=== PATIENT | female | born 1980 | race Caucasian/White ===

== ENCOUNTER 2019-04-06 21:07 | Emergency (ER) | payer OTHER ==
[~2019-04-06] VITALS: Ht 165.1 cm; Wt 76.0 kg
[2019-04-06 23:24] VITALS: BP 102/71
== END 2019-04-06 23:27 | disposition home or self-care (01) ==
LOC: ED 23:04
DX: R10.33 Periumbilical pain (principal); R11.0 Nausea
CPT/HCPCS: 36415; 76700; 80053; 81001; 81025; 83690; 85025; 99284